=== PATIENT | male | born 1950 | race Asian ===

== ENCOUNTER 2019-04-22 18:48 | Emergency (ER) | payer SELFPAY ==
[~2019-04-22] VITALS: Ht 149.9 cm; Wt 59.0 kg
[2019-04-22 18:52] VITALS: BP 174/101
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
--- NOTE | 2019-04-22 19:15 | NUR ---
ED Nurse Note: Received report from [facility].
--- NOTE | 2019-04-22 19:23 | NUR ---
ED Nurse Note: Patient taken to CT scan in stable condition.
--- NOTE | 2019-04-22 19:35 | NUR ---
ED Nurse Note: Patient returned from CT in stable condition
--- NOTE | 2019-04-22 19:40 | NUR ---
[employer] at bedside.
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
[2019-04-22] MEDS ORDERED: IBUPROFEN600 MG ORAL (20:02)
[2019-04-22] MEDS ORDERED: TYLENOL EXTRA500 MG ORAL (20:02)
[2019-04-22 20:06] VITALS: BP 169/98
--- NOTE | 2019-04-22 20:06 | NUR ---
ER DISCHARGE NOTE: Patient is cleared to be discharged per ERMD, pt is aox4, on room air, with stable vital signs. pt was given dc and prescription instructions, pt was able to verbalize understanding, pt id band removed. pt is able to ambulate with steady gait. pt took all belongings. pt stable upon discharge accompanied by daughter.
== END 2019-04-22 20:15 | disposition home or self-care (01) ==
LOC: EDBD 18:48 → EMR 20:15
DX: S40.212A Abrasion of left shoulder, initial encounter (principal); S20.212A Contusion of left front wall of thorax, initial encounter; V43.52XA Car driver injured in collision with other type car in traffic accident, initial encounter; Y92.411 Interstate highway as the place of occurrence of the external cause
CPT/HCPCS: 71250; 93005; 99284